=== PATIENT | male | born 1965 | race Caucasian/White ===

== ENCOUNTER 2020-12-24 14:08 | Outpatient (REF) | payer OTHER, SELFPAY ==
[2020-12-24 16:10] LABS: BUN 23 mg/dL (7-18); Calcium 8.6 mg/dL (8.5-10.1); Calculated LDL 94 mg/dL (<100); Cholesterol 143 mg/dL (<200); Glucose 100 mg/dL (74-106); HDL Cholesterol 39 mg/dL (40-60); Triglyceride 52 mg/dL (<150)
[2020-12-24 16:11] LABS: ALT 55 U/L (16-63); AST 25 U/L (15-37); Albumin 4.1 g/dL (3.4-5.0); Alkaline Phosphatase 52 U/L (46-116); Anion Gap 8.2 mmol/L (3-11); Bilirubin, Total 0.7 mg/dL (0.2-1.0); CO2 25.8 mmol/L (21.0-32.0); Chloride 106 mmol/L (98-107); Potassium 4.6 mmol/L (3.5-5.1); Sodium 140 mmol/L (136-145); TSH 1.28 uIU/mL (0.36-3.74); Total Protein 6.8 g/dL (6.4-8.2)
[2020-12-24 22:45] LABS: PSA, Screening 0.3 ng/mL (0.0-3.5)
== END 2020-12-24 14:09 | disposition home or self-care (01) ==
LOC: NCHCN 14:08
PROVIDERS: Visit Provider Physician Assistant
DX: Z12.5 Encounter for screening for malignant neoplasm of prostate (principal); E03.9 Hypothyroidism, unspecified; F41.9 Anxiety disorder, unspecified; F10.20 Alcohol dependence, uncomplicated
CPT/HCPCS: 80053; 80061; 84153; 84443